=== PATIENT | male | born 1960 | race Caucasian/White ===

== ENCOUNTER → 2018-09-05 10:38 | Outpatient (CLI) | payer OTHER, SELFPAY ==
--- NOTE | 2018-09-05 | DI.US.S_ITS ---
PROCEDURE: US SCROTUM INDICATIONS: SCROTAL PAIN TECHNIQUE: Real-time scanning was performed of the scrotum and testicles, with image documentation. Color and pulse Doppler interrogation was performed of both testicles. COMPARISON: None. FINDINGS: Right: Testicle is normal in size at 4.8 x 2.4 x 3.1 cm, and homogenous in echotexture. Epididymis is normal in overall size and morphology. Small, simple right hydrocele. No varicocele. Overlying scrotal skin is normal in thickness. Left: Testicle and epididymis have been surgically removed. No hydrocele or varicoceles. Overlying scrotal skin is normal in thickness. Doppler: Color and pulse Doppler demonstrate normal arterial and venous flow the right testicle. IMPRESSION: 1. Small, nonspecific right hydrocele. 2. Normal morphology of right testicle and epididymis. 3. Surgically absent left testicle and epididymis. Dictated by: Laura Fung M.D. on 09/05/2018 at 12:17 Approved by: Laura Fung M.D. on 09/05/2018 at 12:20
== END ==
PROVIDERS: PCP Family Medicine; Visit Provider Urology
DX: N50.82 Scrotal pain (principal); N43.3 Hydrocele, unspecified
CPT/HCPCS: 76870

== ENCOUNTER → 2025-02-28 18:31 | Outpatient (CLI) | payer OTHER, MEDICAID, SELFPAY ==
--- NOTE | 2025-02-28 18:34 | DI.MRI.S_ITS ---
PROCEDURE: MR KNEE LT WO CON INDICATIONS: pain in left knee TECHNIQUE: Noncontrast sagittal PD fast spin echo and T2 fast spin echo with fat saturation, sagittal 3-D FLASH with fat saturation; coronal T1 spin echo and PD fast spin echo with fat saturation, and axial PD fast spin echo with fat saturation through the knee. COMPARISON: None. FINDINGS: Image quality: Excellent. Some images may be limited by patient motion, pulsation or other artifacts. Menisci: Markedly abnormal appearance of the lateral meniscus with macerated/degenerated, torn anterior horn extending into the mid body with complex tears exiting to the superior and inferior surfaces. Radial tears of the midbody and subtle oblique tear with free edge fraying of the posterior horn. On the coronal images the lateral meniscus is extruded laterally. Blunting of the apices of the anterior and posterior horns of the medial meniscus extending into the medial meniscal root ligaments. Oblique tear of the posterior horn extending into the mid body exiting to the inferior surface and posterior margin. On the coronal images the medial meniscus is mildly extruded medially. Cruciate ligaments: Moderate increased T2 weighted signal and thinning of the mid and distal anterior cruciate ligament but with intact fibers without complete tear or retraction. Posterior cruciate ligament is intact. Medial structures: Increased T2 weighted signal/edema surrounding and possibly within the mid and distal medial collateral ligament grade 1 injury possible grade 2 injury without complete tear or retraction. Mild increased medial bursal fluid The semimembranosus tendon insertions appear intact. Visualized portions of the pes anserinus tendons appear normal. Lateral structures: The lateral collateral ligament, long and short heads of the biceps femoris tendon appear intact. The popliteus tendon appears normal. Iliotibial band appears normal. Anterior structures: Mild nonspecific increased T2 weighted signal/edema anterior to the patella and patella ligament in the subcutaneous tissues. Patella baja configuration. The quadriceps and patellar tendons appear intact. No femoral trochlear dysplasia or ventral trochlear prominence. No significant edema in the infrapatellar fat pad. Bones and cartilage: Moderate degenerative changes in the medial and lateral greater than patellofemoral compartments with diffuse cartilage thinning, osteophytes and heterogeneous irregularity of the cartilage surfaces without significant subchondral edema. No bone marrow contusions or fractures. Joint space: Moderate knee joint effusion. No significant popliteal cyst. IMPRESSION: Macerated/torn lateral meniscus. Tears of the medial meniscus as discussed above. Injury/strain of the anterior cruciate ligament without complete tear. Moderate degenerative changes in the medial lateral and patellofemoral compartments. Grade 1 or grade 2 injury medial collateral ligament. Other findings as above. Dictated by: Kade Gutierrez M.D. on 03/02/2025 at 9:43 Approved by: Kade Gutierrez M.D. on 03/02/2025 at 9:57
== END ==
LOC: MRI 18:32
PROVIDERS: PCP Family Medicine; Referring Provider Physician Assistant; Visit Provider Physician Assistant
DX: S83.242A Other tear of medial meniscus, current injury, left knee, initial encounter (principal); S83.282A Other tear of lateral meniscus, current injury, left knee, initial encounter; M25.562 Pain in left knee; M25.462 Effusion, left knee; G89.29 Other chronic pain
CPT/HCPCS: 73721